=== PATIENT | male | born 1930 | race Caucasian/White ===

== ENCOUNTER 2017-10-26 23:24 | Observation (INO) | payer MEDICARE ==
[~2017-10-26] VITALS: Ht 167.6 cm; Wt 79.8 kg
[2017-10-26] MEDS ORDERED: aspirin 81mg tab.chew PO ONE (23:30)
[2017-10-27] VITALS (9 sets, daily range): BP systolic 147–187; BP diastolic 58–78
[2017-10-27 00:05] LABS: BASOPHILS % (AUTO) 0.3 % (0-1); EOSINOPHILS # (AUTO) 0.1 X10'3 (0-0.9); EOSINOPHILS % (AUTO) 1.4 % (0-6); HEMATOCRIT 34.7 % (42.0-52.0); HEMOGLOBIN 11.9 g/dl (14.0-17.9); LYMPHOCYTES # (AUTO) 1.5 X10'3 (1.1-4.8); LYMPHOCYTES % (AUTO) 19.2 % (21-51); MEAN CORPUSCULAR HEMOGLOBIN 33.4 PG (27.0-31.0); MEAN CORPUSCULAR HGB CONC 34.2 % (33.0-36.5); MEAN CORPUSCULAR VOLUME 97.7 FL (78-98); MEAN PLATELET VOLUME 8.8 FL (7.4-10.4); MONOCYTES # (AUTO) 0.5 X10'3 (0-0.9); NEUTROPHILS # (AUTO) 5.7 X10'3 (1.8-7.7); NEUTROPHILS % (AUTO) 73.1 % (42-75); PLATELET COUNT 183 X10'3 (140-440); RED BLOOD COUNT 3.55 X10'6 (4.70-6.10); RED CELL DISTRIBUTION WIDTH 12.9 % (11.5-14.5); WHITE BLOOD COUNT 7.8 X10'3 (4.5-11.0)
[2017-10-27 00:19] LABS: ANION GAP 7 (8-16); BLOOD UREA NITROGEN 30 MG/DL (7-18); CHLORIDE 105 MMOL/L (99-107); CREATININE 1.67 MG/DL (0.60-1.10); GLUCOSE 443 MG/DL (70-104); SODIUM 137 MMOL/L (135-145); TOTAL CARBON DIOXIDE 24.7 MMOL/L (24-32)
[2017-10-27 00:20] LABS: ALANINE AMINOTRANSFERASE 22 U/L (12-78); ALBUMIN 3.5 G/DL (3.4-5.0); ALBUMIN/GLOBULIN RATIO 0.9 (1.1-1.5); ALKALINE PHOSPHATASE 108 IU/L (46-116); ASPARTATE AMINO TRANSFERASE 12 U/L (10-37); BILIRUBIN,TOTAL 0.2 MG/DL (0.1-1.0); CALCIUM 8.9 MG/DL (8.5-10.1); TOTAL PROTEIN 7.5 G/DL (6.4-8.2); eGFR 39 ML/MIN
[2017-10-27 00:27] LABS: MAGNESIUM 1.9 MG/DL (1.5-2.4)
[2017-10-27] MEDS ORDERED: normal saline 1000ml 1,000 ML IV ONE (02:05)
[2017-10-27] MEDS ORDERED: METF500T PO (02:25)
[2017-10-27] MEDS ORDERED: ASPI-1265 PO (02:25)
[2017-10-27] MEDS ORDERED: insulin Lispro (HumaLOG) vial - multi-dose SQ SCH (02:55)
[2017-10-27] MEDS ORDERED: dextrose ORAL solution 15 GM/59 ML bottle PO PRN ×2 (02:55)
[2017-10-27] MEDS ORDERED: dextrose 50%-water 50ml dispensing syringe IV PRN ×2 (02:55)
[2017-10-27] MEDS ORDERED: CAFFEINE CITRATE 60 MG/3 ML injection vial IV PRN (02:55)
[2017-10-27] MEDS ORDERED: regadenoson 0.4mg/5ml syringe IV ONE ×3 (02:55→13:55)
[2017-10-27] MEDS ORDERED: MESSAGE TO PHARMACY PO ONE (02:55)
[2017-10-27] MEDS ORDERED: mag hydrox/Alum hydrox/simeth 30ml oral suspension PO PRN (02:55)
[2017-10-27] MEDS ORDERED: glucagon, human recombinant 1mg kit SUBCUT PRN (02:55)
[2017-10-27] MEDS ORDERED: metoprolol tartrate 1mg/ml inj IV PRN (02:55)
[2017-10-27] MEDS ORDERED: morphine 4 MG/ML inj SYRINge IV PRN ×2 (02:55)
[2017-10-27] MEDS ORDERED: ondansetron/PF 4mg/2ml inj IV PRN (02:55)
[2017-10-27] MEDS ORDERED: nitroGLYCERIN 0.4mg SUBLingual tab SL PRN (02:55)
[2017-10-27] MEDS ORDERED: acetaminophen 325mg tablet PO PRN ×2 (02:55)
[2017-10-27] MEDS ORDERED: normal saline 1000ml 1,000 ML IV SCH (02:55)
[2017-10-27] MEDS ORDERED: magnesium hydroxide 30ml (MOM) UD suspension PO PRN (02:55)
[2017-10-27] MEDS ORDERED: amLODIPine 5mg tablet PO STA (05:26)
[2017-10-27] MEDS ORDERED: aspirin 81mg tab.chew PO SCH (08:00)
[2017-10-27 10:22] LABS: BASOPHILS % (AUTO) 0.3 % (0-1); EOSINOPHILS # (AUTO) 0.2 X10'3 (0-0.9); EOSINOPHILS % (AUTO) 2.7 % (0-6); HEMATOCRIT 34.6 % (42.0-52.0); HEMOGLOBIN 12.1 g/dl (14.0-17.9); LYMPHOCYTES # (AUTO) 1.5 X10'3 (1.1-4.8); LYMPHOCYTES % (AUTO) 16.6 % (21-51); MEAN CORPUSCULAR HGB CONC 35.1 % (33.0-36.5); MEAN CORPUSCULAR VOLUME 96.9 FL (78-98); MEAN PLATELET VOLUME 8.6 FL (7.4-10.4); MONOCYTES # (AUTO) 0.6 X10'3 (0-0.9); MONOCYTES % (AUTO) 6.7 % (2-12); NEUTROPHILS # (AUTO) 6.8 X10'3 (1.8-7.7); NEUTROPHILS % (AUTO) 73.7 % (42-75); PLATELET COUNT 172 X10'3 (140-440); RED BLOOD COUNT 3.57 X10'6 (4.70-6.10); RED CELL DISTRIBUTION WIDTH 13.9 % (11.5-14.5); WHITE BLOOD COUNT 9.2 X10'3 (4.5-11.0)
[2017-10-27 10:38] LABS: ALANINE AMINOTRANSFERASE 20 U/L (12-78); ALBUMIN 3.4 G/DL (3.4-5.0); ALBUMIN/GLOBULIN RATIO 0.9 (1.1-1.5); ALKALINE PHOSPHATASE 76 IU/L (46-116); ANION GAP 3 (8-16); ASPARTATE AMINO TRANSFERASE 14 U/L (10-37); BILIRUBIN,TOTAL 0.4 MG/DL (0.1-1.0); BLOOD UREA NITROGEN 25 MG/DL (7-18); BUN/CREATININE RATIO 20.5 (5.4-32.0); CHLORIDE 107 MMOL/L (99-107); CREATININE 1.22 MG/DL (0.60-1.10); GLUCOSE 215 MG/DL (70-104); POTASSIUM 4.2 MMOL/L (3.5-5.1); SODIUM 138 MMOL/L (135-145); TOTAL PROTEIN 7.1 G/DL (6.4-8.2); eGFR 56 ML/MIN
[2017-10-27 10:40] LABS: TROPONIN I 0.16 NG/ML (0.0-0.05)
[2017-10-27 10:53] LABS: HEMOGLOBIN A1C 8.6 % (4.5-6.2)
[2017-10-27] MEDS ORDERED: CAFFEINE CITRATE 60 MG/3 ML injection vial IV ONE (13:54)
[2017-10-27] MEDS ORDERED: CARV-49 PO (16:19)
[2017-10-27] MEDS ORDERED: ATOR10TA PO (16:19)
[2017-10-27] MEDS ORDERED: LISI2.5T2 PO (16:19)
[2017-10-27] MEDS ORDERED: insulin glargine (Lantus) pen - multi-dose SQ SCH (21:00)
== END 2017-10-27 16:59 | disposition home or self-care (01) ==
LOC: ER 23:25 → ED HOLD 10-27 02:52 → PCU 3S 10-27 05:08
PROVIDERS: ADMIT Internal Medicine; ATTEND Internal Medicine
DX: R07.89 Other chest pain (principal); I10 Essential (primary) hypertension; E78.5 Hyperlipidemia, unspecified; E11.9 Type 2 diabetes mellitus without complications; I16.0 Hypertensive urgency; I20.0 Unstable angina; N17.9 Acute kidney failure, unspecified; D64.9 Anemia, unspecified; S00.31XA Abrasion of nose, initial encounter; Z87.891 Personal history of nicotine dependence; Z66 Do not resuscitate; X58.XXXA Exposure to other specified factors, initial encounter; Y93.89 Activity, other specified; Y92.89 Other specified places as the place of occurrence of the external cause; Y99.8 Other external cause status
CPT/HCPCS: 36415; 71045; 73120; 78452; 80053; 82948; 83036; 83735; 83880; 84484; 85025; 87070; 93005; 93017; 96360; 96361; 99285; A9500; G0378; J1815; J7030